=== PATIENT | female | born 1960 | race Caucasian/White ===

== ENCOUNTER 2017-10-09 08:22 | Emergency (ER) | payer OTHER ==
[2017-10-09 08:28] VITALS: BP 151/91
--- NOTE | 2017-10-09 10:17 | Emergency Department Report ---
HPI - General Chief Complaint: Sore Throat Time Seen by Provider: 10/09/17 09:06 - HPI HPI: Patient here complaining of difficulty breathing and at times especially when she lays down at night. She reports that she can't sleep at night and she doesn 't know why. Completed a headache on and off. Her main complaint is sore throat with fever 1 day. Patient is a febrile. Sore throat comes and goes. When asked, she has drainage in the back of her throat. Pain is reported 10 only with swallowing. No drooling or difficulty swallowing at present. Denies any difficulty breathing or chest pain at present. Patient reports that she has acid reflux and need medication. Denies any nausea or vomiting. Denies any fever or chills. She reports occasional cough and period. She [facility] for [facility]. She also said that sometimes when she eats she feels like there is something stuck in her throat. The cough and up blood. ED Past Medical Hx - Past Medical History Previous Medical History?: No - Surgical History Past Surgical History?: No - Family History Family history: no significant - Social History Smoking Status: Never Smoker Substance Use Type: None - Medications Home Medications: Home Medications Medication Instructions Recorded Confirmed Last Taken Type Fluticasone [Flonase] 1 spray NS QDAY #1 bottle 10/09/17 Unknown Rx Ibuprofen [Motrin] 600 mg PO Q8H PRN #12 tablet 10/09/17 Unknown Rx Ranitidine HCl [Zantac] 150 mg PO Q12H #60 tablet 10/09/17 Unknown Rx ED Review of Systems ROS: Stated complaint: SAAD Other details as noted in HPI Comment: All other systems reviewed and negative Constitutional: fever Eyes: denies: eye pain, eye discharge ENT: throat pain, congestion. denies: ear pain, dental pain, hearing loss, epistaxis Respiratory: cough. denies: shortness of breath, SOB with exertion, SOB at rest , stridor, wheezing Cardiovascular: denies: chest pain, palpitations, dyspnea on exertion, edema, syncope, paroxysmal nocturnal dyspnea Gastrointestinal: denies: abdominal pain, nausea, vomiting, diarrhea, constipation Musculoskeletal: denies: back pain, joint swelling, arthralgia, myalgia Skin: denies: rash Neurological: headache. denies: numbness, paresthesias, abnormal gait, vertigo Physical Exam - Physical Exam Vital Signs: Vital Signs 10/09/17 08:23 Temperature 97.7 F Pulse Rate 78 Respiratory 20 Rate Blood Pressure 151/91 O2 Sat by Pulse 97 Oximetry General: 57-year-old female well-nourished well-developed in no acute distress Physical Exam: Head: Normocephalic, atraumatic, no abrasion, no bruising and no contusion. Eyes: Biateral pupils equal and reactive to light, bilateral EOM intact.. Bilateral conjunctival and sclera without injection, normal accommodation. No nystagmus Mouth: Moist, no pharyngeal exudate or erythema. No peritonsillar abscesses. Uvula is midline and oral airways patent. Ears: BiLateral TM congested without erythema. Bilateral EAC without any redness swelling or drainage. No mastoid bone tenderness Nose: Bilateral nasal turbinates congested with erythema and clear drainage. Maxillary and frontal sinuses non-tender to palpate. Neck: Supple, No Cervical adenopathy, full range of motion and no C-spine tenderness. No swelling or tracheal deviation normal reflexes Cardiovascular: S1, S2. Regular rate and rhythm. No murmur. Capillary refill is less then 3 seconds. Lungs: Clear to auscultate bilaterally. No rhonchi, wheezes or rales. No chest wall tenderness. No chest contusion. No bruising to chest. MSK: Strength 5/5 in all extremities. No joint deformity or crepitus. Normal inspection. Full range of motion to all extremities. No laceration, abrasion or ecchymotic area noted. Abdomen: Non-tender to palpate in all quadrants, no guarding or rebound tenderness, positive bowel sounds in all quadrants. No CVA tenderness. No hernia, bruit or mass. No rigidity or distention. Extremities: No clubbing, cyanosis or edema. +2 pulses. No neurovascular compromise Skin: Clean, dry and intact. No rash or lesions. Neurological: GCS at 15, Pt is alert and oriented 3 speech is clear. Bilateral hand lens grinder strong and equal. Normal gait. Negative Romberg and no pronator drift. Normal Reflexes. No motor or sensory deficit Back: No vertebral tenderness, no paraspinal tenderness. Ambulates without any difficulties. Psych: Normal mood and behavior ED Course Vital Signs 10/09/17 08:23 Temperature 97.7 F Pulse Rate 78 Respiratory 20 Rate Blood Pressure 151/91 O2 Sat by Pulse 97 Oximetry - Reevaluation(s) Reevaluation #1: 10/09/17 11:49 Patient able to tolerate juices without any difficulties in swallowing. ED Medical Decision Making - EKG Data -: EKG Interpreted by Me (attending physician) EKG shows normal: sinus rhythm (60 beats per minutes) Rate: normal (no ST abnormality) - EKG Data Interpretation: no acute changes, normal EKG - Medical Decision Making ED course: This is a 57-year-old female well-nourished well-developed who is here for multiple complaints to include sore throat, cough, congestion, fever and requests then Zantac for acid reflux. She was reporting that she has feeling of food stuck in her chest from time to time. She was able to drink oral liquids without any difficulties. EKG reflects a patient with normocephalic rhythm at [address] abnormalities. This was relayed to patient and she voiced understanding. I discussed with her she'll need to go to a flight agent and also to continue to follow-up with outside Medical Center for management of medical problems. Patient and and her voice understanding of discharge instruction, treatment plan and diagnosis. Discharged home a prescription for Zantac, Flonase and Zyrtec. Critical care attestation.: If time is entered above; I have spent that time in minutes in the direct care of this critically ill patient, excluding procedure time. ED Disposition Clinical Impression: Dyspepsia, URI with cough and congestion Disposition: DC-01 TO HOME OR SELFCARE Is pt being admited?: No Does the pt Need Aspirin: No Condition: Stable Instructions: Chronic Indigestion (ED), Upper Respiratory Infection (ED), Acute Cough (ED) Additional Instructions: Please increase the fluid intake Pain medication as prescribed Follow up with [place] [facility]-for indigestion Follow-up with outside Medical Center in 2-3 days Prescriptions: Fluticasone [Flonase] 1 spray NS QDAY #1 bottle Ibuprofen [Motrin] 600 mg PO Q8H PRN #12 tablet PRN Reason: Pain Ranitidine HCl [Zantac] 150 mg PO Q12H #60 tablet Referrals: [facility] [Outside] - 2-3 Days [facility] [Provider Group] - 2-3 Days Forms: Work/School Release Form(ED)
== END 2017-10-09 12:07 | disposition home or self-care (01) ==
LOC: ED 08:22
DX: J06.9 Acute upper respiratory infection, unspecified (principal); R10.13 Epigastric pain
CPT/HCPCS: 93005; 93010; 99282

== ENCOUNTER 2017-10-10 17:19 | Emergency (ER) | payer OTHER ==
[2017-10-10 17:34] VITALS: BP 140/85
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
[2017-10-10] MEDS ORDERED: ULTRAM PO ONE (23:51)
[2017-10-10] MEDS ORDERED: FLEXERIL PO ONE (23:51)
== END 2017-10-11 00:08 | disposition home or self-care (01) ==
LOC: ED 17:19
DX: S39.92XA Unspecified injury of lower back, initial encounter (principal); M54.2 Cervicalgia; M25.529 Pain in unspecified elbow; V89.2XXA Person injured in unspecified motor-vehicle accident, traffic, initial encounter; Y93.89 Activity, other specified; Y92.89 Other specified places as the place of occurrence of the external cause; Y99.8 Other external cause status
CPT/HCPCS: 99283

== ENCOUNTER 2020-07-19 13:59 | Emergency (ER) | payer OTHER ==
--- NOTE | 2020-07-19 14:17 | Event Note ---
ED Screening Note Date of service: 07/19/20 Time: 14:15 ED Screening Note: 59 y/o female comes in for multile complaints of chest pain, back pain not able to sleep. This initial assessment/diagnostic orders/clinical plan/treatment(s) is/are subject to change based on patients health status, clinical progression and re- assessment by fellow clinical providers in the ED. Further treatment and workup at subsequent clinical providers discretion. Patient/guardian urged not to elope from the ED as their condition may be serious if not clinically assessed and managed. Initial orders include:
--- NOTE | 2020-07-19 14:51 | XRay Report ---
XR chest routine 2V INDICATION / CLINICAL INFORMATION: chest pain. COMPARISON: None available. FINDINGS: SUPPORT DEVICES: None. HEART / MEDIASTINUM: No significant abnormality. LUNGS / PLEURA: No significant pulmonary or pleural abnormality. No pneumothorax. ADDITIONAL FINDINGS: No significant additional findings. IMPRESSION: 1. No acute findings. Signer Name: Timbo Gayle MD Signed: 07/19/2020 2:47 PM Workstation Name: [id number]
--- NOTE | 2020-07-19 14:52 | XRay Report ---
XR spine thoracic 2V INDICATION / CLINICAL INFORMATION: back pain. COMPARISON: None available. FINDINGS/IMPRESSION: Thoracic spinal alignment is preserved. Vertebral body heights are intact. There is no evidence of fr acture. Mild multilevel degenerative disc disease noted throughout the thoracic spine. Visualized grover gs are clear. Signer Name: Timbo Gayle MD Signed: 07/19/2020 2:47 PM Workstation Name: [id number]
[2020-07-19 15:04] LABS: Basophils # (Auto) 0.1 K/mm3 (0.0-0.1); Basophils % (Auto) 1.1 % (0.0-1.8); Eosinophils # (Auto) 0.8 K/mm3 (0.0-0.4); Eosinophils % (Auto) 10.2 % (0.0-4.3); Hematocrit 44.1 % (30.3-42.9); Hemoglobin 14.8 gm/dl (10.1-14.3); Lymphocytes # (Auto) 2.3 K/mm3 (1.2-5.4); Lymphocytes % (Auto) 29.5 % (13.4-35.0); Mean Corpuscular HGB Conc 34 % (30-34); Mean Corpuscular Volume 87 fl (79-97); Monocytes # (Auto) 0.4 K/mm3 (0.0-0.8); Monocytes % (Auto) 5.6 % (0.0-7.3); Platelet Count 241 K/mm3 (140-440); Red Blood Count 5.07 M/mm3 (3.65-5.03); Red Cell Distribution Width 13.8 % (13.2-15.2)
[2020-07-19 15:14] LABS: Alanine Aminotransferase 17 units/L (7-56); Albumin 4.6 g/dL (3.9-5); Blood Urea Nitrogen 13 mg/dL (7-17); Calcium 9.7 mg/dL (8.4-10.2); Hemolysis Index 11
[2020-07-19 15:15] LABS: BUN/Creatinine Ratio 19
[2020-07-19 16:01] LABS: Bilirubin,Urine NEG (Negative); Blood,Urine NEG (Negative); Color,Urine Straw (Yellow); Protein,Urine <15 mg/dL mg/dL (Negative); Urobilinogen,Urine < 2.0 mg/dL (<2.0)
[2020-07-19 17:10] VITALS: BP 136/94
--- NOTE | 2020-07-19 17:45 | Emergency Department Report ---
ED General Adult HPI - General Chief complaint: Anxiety Stated complaint: ANXIETY Time Seen by Provider: 07/19/20 17:02 Source: patient Mode of arrival: Ambulatory Limitations: No Limitations - History of Present Illness Initial comments: 59-year-old female presents emergency department complaining of a 1 year history of insomnia which has been progressively worsening primarily with the onset of her sleep apnea and utilization of a CPAP machine this past May. She been having a lot of issues with with sleeping resulting in irritable nests and sometimes headaches. She also has been problematic some bloating to her abdomen and increased gas she is not yet tried anything [id number] for her treatment. She reports no chest pain or palpitations no nausea vomiting no shortness of breath no orthopnea. She reports no loss of consciousness no fever Radiation: non-radiation Quality: dull Consistency: constant Improves with: none Worsens with: none Associated Symptoms: denies other symptoms Treatments Prior to Arrival: none - Related Data Previous Rx's Medication Instructions Recorded Last Taken Type Fluticasone [Flonase] 1 spray NS QDAY #1 bottle 10/09/17 Unknown Rx Ibuprofen [Motrin] 600 mg PO Q8H PRN #12 tablet 10/09/17 Unknown Rx raNITIdine HCl [Zantac] 150 mg PO Q12H #60 tablet 10/09/17 Unknown Rx Cyclobenzaprine [Flexeril] 10 mg PO TID PRN #12 tablet 10/10/17 Unknown Rx traMADoL [Ultram] 50 mg PO Q6HR PRN #12 tablet 10/10/17 Unknown Rx Allergies Allergy/AdvReac Type Severity Reaction Status Date / Time No Known Allergies Allergy Verified 10/10/17 17:32 ED Review of Systems ROS: Stated complaint: ANXIETY Other details as noted in HPI Comment: All other systems reviewed and negative ED Past Medical Hx - Social History Smoking Status: Never Smoker Substance Use Type: None - Medications Home Medications: Home Medications Medication Instructions Recorded Confirmed Last Taken Type Fluticasone [Flonase] 1 spray NS QDAY #1 bottle 10/09/17 Unknown Rx Ibuprofen [Motrin] 600 mg PO Q8H PRN #12 tablet 10/09/17 Unknown Rx raNITIdine HCl [Zantac] 150 mg PO Q12H #60 tablet 10/09/17 Unknown Rx Cyclobenzaprine [Flexeril] 10 mg PO TID PRN #12 tablet 10/10/17 Unknown Rx traMADoL [Ultram] 50 mg PO Q6HR PRN #12 tablet 10/10/17 Unknown Rx ED Physical Exam - General Limitations: No Limitations General appearance: alert, in no apparent distress - Head Head exam: Present: atraumatic, normocephalic - Eye Eye exam: Present: normal appearance, PERRL, EOMI Pupils: Present: normal accommodation - ENT ENT exam: Present: normal exam, normal orophraynx, mucous membranes moist - Neck Neck exam: Present: normal inspection, full ROM - Respiratory Respiratory exam: Present: normal lung sounds bilaterally. Absent: respiratory distress, wheezes, rales, chest wall tenderness, accessory muscle use - Cardiovascular Cardiovascular Exam: Present: regular rate, normal rhythm. Absent: systolic murmur, diastolic murmur, rubs, gallop - GI/Abdominal GI/Abdominal exam: Present: soft, normal bowel sounds - Extremities Exam Extremities exam: Present: normal inspection - Back Exam Back exam: Present: normal inspection, paraspinal tenderness - Neurological Exam Neurological exam: Present: alert, oriented X3, CN II-XII intact - Psychiatric Psychiatric exam: Present: normal affect, normal mood - Skin Skin exam: Present: warm, dry, intact, normal color. Absent: rash ED Course Vital Signs 07/19/20 07/19/20 14:16 17:09 Temperature 97.9 F Pulse Rate 102 H 76 Respiratory 18 16 Rate Blood Pressure 131/88 136/94 [Right] O2 Sat by Pulse 99 98 Oximetry ED Medical Decision Making - Lab Data Result diagrams: 07/19/20 14:40 07/19/20 14:40 - Radiology Data Radiology results: report reviewed [address] [address] XRay Report Signed Patient: BOONE TEE MR#: [id number] : 1960 Acct:[id number] Age/Sex: 59 / F ADM Date: 07/19/20 Loc: ED Attending Dr: Ordering Physician: TIMMY CARTER Date of Service: 07/19/20 Procedure(s): XR chest routine 2V Accession Number(s): [id number] cc: TIMMY CARTER Fluoro Time In Minutes: XR chest routine 2V INDICATION / CLINICAL INFORMATION: chest pain. COMPARISON: None available. FINDINGS: SUPPORT DEVICES: None. HEART / MEDIASTINUM: No significant abnormality. LUNGS / PLEURA: No significant pulmonary or pleural abnormality. No pneumothorax. ADDITIONAL FINDINGS: No significant additional findings. IMPRESSION: 1. No acute findings. Signer Name: Syl Gayle MD Signed: 07/19/2020 2:47 PM Workstation Name: [id number] Transcribed By: JS Dictated By: SYL SURESH MD Electronically Authenticated By: SYL SURESH MD Signed Date/Time: 07/19/201446 DD/ 45 TD/TT: - Medical Decision Making 39-year-old female [facility] emergency department complaining of insomnia which is been plaguing her for over a year she states she was advised to come to the emergency department for treatment by her sleep study Dr. She has tried to ut ilize melatonin 5mg tablets once or twice at nighttime to alleviate her symptoms with no improvement and seeks other medications at this time. No chest pain no fever no chills no blurry vision. Critical care attestation.: If time is entered above; I have spent that time in minutes in the direct care of this critically ill patient, excluding procedure time. ED Disposition Clinical Impression: Insomnia, Musculoskeletal pain Disposition: - TO HOME OR SELFCARE Is pt being admited?: No Does the pt Need Aspirin: No Condition: Stable Instructions: Insomnia, Musculoskeletal Pain Additional Instructions: Please follow-up with her primary care doctor for further treatment involving your insomnia also your sleep study doctor for reevaluation of your CPAP mask as your symptoms did worsen with utilization of this device. Please be cautious of [id number] sleep aids which may interfere with your current therapies Referrals: PRIMARY ERIS, [Primary Care Provider] - 3-5 Days RICCARDO PALACIO MD [Referring] - 3-5 Days BRANDI VILLEGAS MD [Referring] - 3-5 Days
== END 2020-07-19 18:02 | disposition home or self-care (01) ==
LOC: ED 13:59
DX: G47.00 Insomnia, unspecified (principal); M79.10 Myalgia, unspecified site; Z79.899 Other long term (current) drug therapy
CPT/HCPCS: 36415; 71046; 72070; 80053; 81001; 83690; 84484; 85025; 93005